=== PATIENT | male | born 1940 | race Caucasian/White ===

== ENCOUNTER → 2019-08-26 | Outpatient (CLI) | payer MEDICARE ==
[2019-08-26] VITALS (8 sets, daily range): BP systolic 134–151; BP diastolic 70–81
[~2019-08-26] VITALS: Ht 188 cm; Wt 90.3 kg
[~2019-08-26] MED LIST: DILTIAZEM ER180 M2 PO; LEVO-T50 MCG PO; OMEPRAZOLE40 MG PO; SPIRONOLACT/HCT1 TA1 PO
[2019-08-26 12:32] LABS: HEMATOCRIT 41.3 % (42.0-52.0); HEMOGLOBIN 14.2 gm/dL (14.0-18.0); MCH 30.2 pg (26.0-34.0); MCHC 34.3 g/dL (28.0-37.0); MCV 88.1 fL (80.0-100.0); MPV 8.6 fl. (7.2-11.1); NUCLEATED RBCS 0 /100WBC; PLATELET COUNT* 174 thou/uL (150-400); RBC 4.69 mil/uL (4.50-6.00); RDW-CV 17.4 % (10.5-14.5); WBC 6.5 thou/uL (4.0-11.0)
[2019-08-26 12:43] LABS: APTT 29.7 Seconds (25.0-31.3); INR 1.1; PROTIME 10.8 Seconds (9.20-11.50)
[2019-08-26 13:05] LABS: ABSOLUTE EOSINOPHILS 0.5 thou/uL (0.0-0.7); ABSOLUTE LYMPHOCYTES 0.7 thou/uL (0.8-5.3); ABSOLUTE MONOCYTES 0.5 thou/uL (0.0-1.2); ABSOLUTE NEUTROPHILS 4.7 thou/uL (1.6-8.1); ANISOCYTOSIS 1+; PLATELET ESTIMATE ADEQUATE
--- NOTE | 2019-09-08 19:06 | PATH ---
[address] [address] PATHOLOGY RPT PROCEDURE Name: OZZIEDADA RODRIGUEZ Shante Room: [facility]#: [id number] Admission: 08/26/19 Date of : 36 Discharge: Report #: [id number] Path Case #: [id number] [facility] Accession Number: [id number] . 01 Material submitted: . PART A: bone - BONE MARROW BIOPSY PART B: bone - BONE MARROW CLOT PART C: bone - BONE MARROW ASPRIATE SLIDES PART D: bone - PERIPHERAL BLOOD SMEARS PART E: bone - BONE MARROW FLOW . 01 Clinical history: . Monoclonal gammopathy . 02 Diagnosis: Special studies report received from [facility], [address] [place] [address], [address], [place], [address], on case [id number], labeled with their number [id number], dated 08/28/2019. . Flow Cytometry: Hematologic Neoplasia Assessment . Clinical History Monoclonal Gammopathy . Indication for Study Evaluation for hematolymphoid neoplasia . Specimen Bone Marrow . Viability 91% (7AAD exclusion) . Interpretation Bone Marrow: - Monotypic plasma cell population (2.0% of sample), consistent with a plasma cell neoplastic process . Comments Plasma cells are typically underrepresented by flow cytometry. Correlation with all available clinical, laboratory, and morphologic data is recommended. If needed, FISH testing (myeloma panel, plasma cell enrichment) is available. . Populations Analyzed Myeloid Blasts: 0.4% No significant immunophenotypic abnormalities Lymphocytes: 4% B-cells: 0.3%, polytypic/polyclonal sIg light chain pattern T-cells: [place] [address] PATHOLOGY RPT PROCEDURE Name: DADA HORNE Shante Room: [facility]#: [id number] Admission: 08/26/19 Date of : 36 Discharge: Report #: [id number] Path Case #: [id number] markers tested CD4+ T-cells: 2.4% (including 0.0% CD57+ cells) CD8+ T-cells: 0.6% (including 0.0% CD57+ cells) CD4:CD8: 3.9 NK cells: 0.7% Neutrophilic Cells: 84% No significant abnormalities of the markers tested Monocytic Cells: 3% No significant abnormalities of the markers tested Eosinophils: 5% No relative increase Basophils: 0.4% No relative increase Plasma Cells: 2.0% 1) Abnormal plasma cells, 2.0% of sample, CD45+ (partial), CD19-, CD20-, CD38+ (bright), CD56+, CD117+, CD138+, HLA DR-, cIg kappa+ 2) Polytypic plasma cells, <0.1% of sample Hematogones: 0.1% Normal B-cell precursors . Morphologic Evaluation A slide was reviewed for quality improvement analyst purposes only. . Specimen Description Cell Yield: 7.68x10 and 6 . Reagent(s) Used CD2, CD3, CD4, CD5, CD7, CD8, CD10, CD11b, CD13, CD14, CD16, CD19, CD20, CD33, CD34, CD38, CD45, CD56, CD57, CD64, CD117, HLA-DR, kappa, lambda, CD138, CytoKappa, CytoLambda . at [facility] Kayden Lundy MD Pathologist . . Intended Use Flow cytometry is optimally used to immunophenotypically characterize abnormal populations when they are detected. Negative flow cytometry results do not exclude lymphoma or neoplasia. Possible false negative flow cytometry results may occur in, but are not limited to, the following: neoplastic cells in Hodgkin lymphoma are not typically adequately represented by routine clinical flow cytometry; neoplastic cells may be lost or inadequately represented due to degeneration, sample processing, sampling artifact, or patchy involvement; plasma cells are typically underrepresented by flow cytometry; immature cells/blasts may be underrepresented due to hemodilution; myeloproliferative disorders and low grade myelodysplasia may not have immunophenotypic abnormalities or increased blasts. Correlation with all available clinical, laboratory, and morphologic data is always necessary to assess for the possibility of false negative flow cytometry results and to [place] [address] PATHOLOGY RPT PROCEDURE Name: DADA HORNE Room: [facility]#: [id number] Admission: 08/26/19 Date of : 36 Discharge: Report #: [id number] Path Case #: [id number] Each marker in this analysis was used to assess for potential antigenic abnormalities or to evaluate detected abnormalities. . Disclaimer(s) This test was performed at [facility] at [address], [place], [address] - Mink Farmer: Stephen Gray MD. [employer] is a business unit of [facility] a wholly-owned subsidiary of [employer]. . Any image or images that accompany this report are public service representative images only and should not be used to render a diagnosis. . This test was developed and its performance characteristics determined by [facility]. It has not been cleared or approved by the Food and Drug Administration (FDA). The FDA has determined that such clearance or approval is not necessary. . For inquiries, the physician may contact Lab: [phone] . A complete copy of the report is on file. . Professional services performed by [facility] at [address], [place] [address]. Technical services performed by [facility] at [address], [place] [address]. . (JMQ:gamaliel 08/28/2019) . [place] 08/29/2019 1003 Local . 02 Addendum: . Clinical History: 79-year-old man with monoclonal gammopathy. . . MICROSCOPIC DESCRIPITON: CBC Data (08/26/19): WBC 6,500 /uL, RBC 4.69, hemoglobin 14.2 g/dL, hematocrit 41.3%, MCV 88.1 fL, MCH 30.2 pg, MCHC 34.3 g/dL, RDW 17.4%, and platelet count 174,000 /uL. White blood cell differential: segs 73%, lymphs 11%, monos 8%, and eos 8%. . Peripheral Blood Smear: Cytomorphological examination of the Lim's stained peripheral blood smear confirms the provided data. Red blood cells are normocytic and are without significant anisopoikilocytosis. White blood cells are predominantly segmented neutrophils and are without significant dyspoiesis or significant left shift. Lymphocytes are predominantly small, round, [place] [address] PATHOLOGY RPT PROCEDURE Name: DADA HORNE Shante Room: [facility]#: [id number] Admission: 08/26/19 Date of : 36 Discharge: Report #: [id number] Path Case #: [id number] and mature appearing with condensed chromatin and scant cytoplasm with admixed large granular lymphocytes. Monocytes are mature. Platelets are adequate in number and mainly normal in morphology with rare larger platelets noted. . Aspirate Smears: Cytomorphological examination of the Lim's stained aspirate smear shows spicules present. The overall cellularity is approximately 40-50%. The myeloid to erythroid ratio is 2:1. Full myeloid maturation is identified and is without significant dyspoiesis. Erythroid maturation is mildly dyserythropoietic with irregular nuclear contours and nuclear cytoplasmic dyssynchrony. In a 500 cell differential, there are 1% blasts (no Priscilla rods are seen), 39% more differentiated myeloids, 22% erythroid precursors, 26% lymphocytes and 12% plasma cells. Megakaryocytes are proportional in number and both normal and abnormal in morphology with variable sizes and nuclear abnormalities. There is a mild increase in small lymphocytes. No lymphoid aggregates or markedly atypical lymphoid cells are seen. Plasma cells have mild atypia with variable cell sizes and multinucleate forms. No markedly atypical plasma cells are seen. Iron stain of the aspirate smear shows 2/4+ iron positivity with spicules present. No ringed sideroblasts are identified. . Core Biopsy and Cell Clot: The decalcified bone marrow core biopsy is adequate. The bone marrow is mildly hypercellular with an overall cellularity of approximately 50%. The myeloid to erythroid ratio is 1-2:1. Myeloid maturation is without significant dyspoiesis. Erythroid maturation is mildly dyserythropoietic. Megakaryocytes are normal in number and both normal and abnormal in morphology. No lymphoid aggregates or markedly atypical lymphoid cells are seen. Bony trabeculae and blood vessels are unremarkable. The cell clot has spicules present that are similar in cellularity and differential morphology as previously described. Again, there is a mild increase in small mature lymphocytes. No well-formed lymphoid aggregates or markedly atypical lymphoid cells are seen. . Properly controlled special stains are performed. . Reticulin (block A1) - No significant reticulin fibrosis Iron (Blocks B1, B2, B3) - 1-2/4+ iron positivity with spicules present . To further quantify and evaluate the plasma cells and to identify cells in a tissue architectural context, properly controlled immunohistochemical stains are performed. . Block A1 CD138 - Stains approximately 30% scattered plasma cells [place] and lambda in situ hybridization - Plasma cells are kappa restricted . Block B3 [place] [address] PATHOLOGY RPT PROCEDURE Name: DADA HORNE Room: [facility]#: [id number] Admission: 08/26/19 Date of : 36 Discharge: Report #: [id number] Path Case #: [id number] CD138 - Approximately 30% scattered plasma cells [place] and lambda in situ hybridization - Plasma cells are kappa restricted . Flow Cytometry: Flow cytometric immunophenotypic analysis was performed at [facility]. The diagnosis is "monotypic plasma cell population (2.0% of sample), consistent with a plasma cell neoplastic process." There are 0.4% myeloid blasts. There are 4% lymphocytes. Of the lymphocytes, there are 0.3% polyclonal B-cells. T-cells have a CD4/CD8 ratio of 3.9 and no aberrant T-cell antigen expression. There are 2.0% abnormal plasma cells characterized as CD45 pos (partial), CD19 neg, CD20 neg, CD38 pos (bright), CD56 pos, CD117 pos, CD138 pos, HLA-DR neg, and cyto kappa pos. Please see separate flow cytometry report from [facility] ([id number]). . Cytogenetics: Cytogenetic analysis is pending at [facility] ([id number]). (OPAL/roberto; 09/02/2019) . FINAL DIAGNOSIS: Bone marrow aspirate, biopsy, cell clot and peripheral blood: - Peripheral blood with no diagnostic abnormalities. - Mildly hypercellular bone marrow with trilineage hematopoiesis, mild dyspoiesis and involvement by plasma cell dyscrasia. (30% kappa restricted plasma cells by immunohistochemical staining). - See comment. . Comment Overall, the bone marrow is mildly hypercellular for the patient's age with trilineage hematopoiesis, mild dyspoiesis and involvement by plasma cell dyscrasia. There are approximately 30% kappa restricted plasma cells by immunohistochemical staining. Correlation with clinical history, additional laboratory data and radiographic findings is required to determine the extent of the disease process. The dyspoiesis is mild and does not meet the morphologic criteria for myelodysplasia. Correlation with cytogenetics is also recommended. (CLW/db; 09/02/2019) JCW/09/02/2019 Addendum Electronically Signed by Kathie Simental MD, Pathologist Addendum #2: Special studies report received from [facility], [address] [place] [address], [address], [place], [address], on case [id number], labeled with their number [id number], dated 09/08/2019. . Referral Testing Report . . Test [place] [address] PATHOLOGY RPT PROCEDURE Name: DADA HORNE Shante Room: [facility]#: [id number] Admission: 08/26/19 Date of : 36 Discharge: Report #: [id number] Path Case #: [id number] . Specimen Type Bone Marrow . Results Chromosome Analysis Indication: Monoclonal Gammopathy . Metaphases Counted: 20 Colonies Counted: Banding Technique: GTW Metaphases Analyzed: 20 Number of Cultures: 2 Banding Resolution: 450 Metaphases Karyotyped: 2 Subculture: Dept. Section: C1 . RESULTS: 46,XY(20) Male karyotype . INTERPRETATION: Normal male chromosome complement observed in all cells examined. There was no evidence of a chromosome abnormality within the limits of the technology utilized. . Signed: Dahlia House, Ph.D. . . Disclaimer This Test was performed by [facility] at [address] [place] [address], [place], [address]. [facility] is a business unit of [employer] a wholly-owned subsidiary of [employer]. . A complete copy of the report is on file. . Professional services performed by [facility] at [address], [place] [address]. Technical services performed by [facility] at [address], [place] [address]. . (CLW:amj 09/08/2019) . AZJ/09/08/2019 Addendum Electronically Signed by Kathie Simental MD, Pathologist . 02 Electronically signed: . Amber Doan MD, Pathologist NPI- [id number] . 01 Gross description: . A. Received in formalin labeled "Dada Horne core," [place] [address] PATHOLOGY RPT PROCEDURE Name: DADA HORNE Room: [facility]#: [id number] Admission: 08/26/19 Date of : 36 Discharge: Report #: [id number] Path Case #: [id number] needle core of zuleta bone measuring 0.8 cm in length and 0.2 cm in diameter. The specimen is submitted entirely in cassette A1, following decalcification. . B. Received in formalin labeled "Dada Horne, clot," is an aggregate of dark zuleta blood clot measuring 3.5 x 1.8 x 1.5 cm. The specimen is filtered and entirely submitted in cassette B1-B3. (TSD; 08/26/2019) TOB/TOB 08/26/2019 194 Local . 02 Pathologist provided ICD-10: D75.9, D47.2 . 02 CPT . 511617, 679828, 074289, 442598, 279005, 056196, 968192, 281802, 966440, 654118, Y40227, K21047, B25035 Specimen Comment: A courtesy copy of this report has been sent to [phone] Specimen Comment: [phone], Specimen Comment: Report sent to ,DR HORAN / DR MEJIAS Performed at: 01 [facility] [address] [facility] [address], [place] [id number] MD Joaquin Bruner MD Phone: [phone] Performed at: 02 [facility] [address] [id number] MD Amber Doan MD Phone: [phone]
== END | disposition home or self-care (01) ==
LOC: M.INT 08-19 10:00
PROVIDERS: Radiology Diagnostic Radiology
DX: D47.2 Monoclonal gammopathy (principal); I12.9 Hypertensive chronic kidney disease with stage 1 through stage 4 chronic kidney disease, or unspecified chronic kidney disease; N18.3 Chronic kidney disease, stage 3 (moderate); E78.5 Hyperlipidemia, unspecified; K21.9 Gastro-esophageal reflux disease without esophagitis; G47.30 Sleep apnea, unspecified; Z87.891 Personal history of nicotine dependence; Z98.890 Other specified postprocedural states; Z79.899 Other long term (current) drug therapy